=== PATIENT | female | born 1995 | race Hispanic/Latino ===

== ENCOUNTER 2019-02-24 17:01 | Emergency (ER) | payer BC ==
[2019-02-24 17:50] VITALS: O2SAT 100
--- NOTE | 2019-02-24 18:21 | ED PDOC ---
HPI: Abdomen Additional History Per: Patient Additional Complaint(s): 23 y/o sexually active female with PMH of anxiety comes to the ER c/o 3 days hx of abdominal pain. Abdominal pain started at epigastric area radiating slowly to umbilicus and LLQ. Pain is dull, comes and goes, 6/10, movements make it worse. Patient denies any dysuria, fever, chills, vaginal discharge, vomiting, diarrhea or constipation. Patient doesnt remember her LMP, + protected sex as per patient. PMH: Anxiety PSH: tonsillectomy Allg: NKDA SH: Social alcohol use FH: + ovarian and breast cancers <Sumit Ballard - Last Filed: 02/24/19 18:49> <Marga Nunez - Last Filed: 02/25/19 10:03> Time Seen by Provider: 02/24/19 17:38 Chief Complaint (Nursing): Abdominal Pain Past Medical History Vital Signs: Last Vital Signs Temp 98.7 F 02/24/19 17:41 Pulse 76 02/24/19 17:41 Resp 18 02/24/19 17:41 BP 132/84 02/24/19 17:41 Pulse Ox 100 02/24/19 17:41 - Family History Family History: States: Other Other Family History: Ovarian and breast cancers <Sumit Ballard - Last Filed: 02/24/19 18:49> Vital Signs: Last Vital Signs Temp 98.7 F 02/24/19 17:41 Pulse 76 02/24/19 17:41 Resp 18 02/24/19 17:41 BP 132/84 02/24/19 17:41 Pulse Ox 100 02/24/19 18:50 <Marga Nunez - Last Filed: 02/25/19 10:03> - Home Medications Home Medications: Ambulatory Orders Medication Instructions Recorded Doxycycline Hyclate 100 mg PO BID 7 Days #14 capsule 02/25/19 - Allergies Allergies/Adverse Reactions: Allergies Allergy/AdvReac Type Severity Reaction Status Date / Time No Known Allergies Allergy Verified 02/24/19 17:44 Review of Systems Constitutional: Negative for: Fever, Chills, Sweats Eyes: Negative for: Pain, Vision Change, Conjunctivae Inflammation ENT: Negative for: Ear Pain, Ear Discharge, Nose Pain, Nose Discharge Cardiovascular: Negative for: Chest Pain, Palpitations, Orthopnea, Paroxysmal Noc. Dyspnea Respiratory: Negative for: Cough, Shortness of Breath, Hemoptysis Gastrointestinal: Positive for: Nausea, Abdominal Pain. Negative for: Vomiting, Diarrhea Genitourinary Female: Negative for: Dysuria, Frequency Musculoskeletal: Negative for: Neck Pain Skin: Negative for: Rash Neurological: Negative for: Weakness, Numbness Psych: Positive for: Anxiety <Ballard,Sumit - Last Filed: 02/24/19 18:49> Physical Exam - Physical Exam Appears: Positive for: No Acute Distress Head Exam: Positive for: ATRAUMATIC, NORMAL INSPECTION, NORMOCEPHALIC Skin: Positive for: Normal Color Eye Exam: Positive for: Normal appearance, EOMI, PERRL ENT: Positive for: Normal ENT Inspection Neck: Positive for: Normal Cardiovascular/Chest: Positive for: Regular Rate, Rhythm. Negative for: Murmur, Bradycardia, Tachycardia Respiratory: Positive for: Normal Breath Sounds. Negative for: Decreased Breath Sounds, Accessory Muscle Use, Wheezing Gastrointestinal/Abdominal: Positive for: Bowel Sounds (present ), Soft, Tenderness (+ suprapubic and LLQ). Negative for: Distended, Guarding, Rebound Back: Positive for: Normal Inspection. Negative for: L CVA Tenderness, R CVA Tenderness Extremity: Positive for: Normal ROM. Negative for: Tenderness, Pedal Edema Neurological/Psych: Positive for: Awake, Alert, Normal Tone, Oriented, apartment rental clerk II- XII. Negative for: Lethargic, Listless <ElioSumit - Last Filed: 02/24/19 18:49> - ECG O2 Sat by Pulse Oximetry: 100 - Progress ED Course And Treament: A/P: 23 y/o F presented to ED c/o abdominal pain. - CBC - CMP - UA - U - TV U/S - Zofran - IVF - Reevaluation Case discussed with Dr. Nunez Transfer of care to Dr. Nunez, labs to follow <Sumit Ballard - Last Filed: 02/24/19 18:49> - Laboratory Results Result Diagrams: 02/24/19 18:45 02/24/19 18:45 Lab Results: Total Bilirubin 0.6 mg/dl (0.2-1.3) 02/24/19 18:45 AST 22 U/L (14-36) 02/24/19 18:45 ALT 31 U/L (9-52) 02/24/19 18:45 Alkaline Phosphatase 60 U/L (38-126) 02/24/19 18:45 Total Protein 8.4 G/DL (6.3-8.2) H 02/24/19 18:45 Albumin 4.9 g/dL (3.5-5.0) 02/24/19 18:45 Globulin 3.6 gm/dL (2.2-3.9) 02/24/19 18:45 Albumin/Globulin Ratio 1.4 (1.0-2.1) 02/24/19 18:45 <Marga Nunez - Last Filed: 02/25/19 10:03> Medical Decision Making Medical Decision Making: Abdominal pain/Superapubic <Sumit Ballard - Last Filed: 02/24/19 18:49> Medical Decision Makin:59 Transvaginal US Findings Uterus Measures 6.7 x 3.4 x 4 cm. Normal in size and appearance. No fibroid or other mass lesion seen. Endometrium Measures 4 mm in diameter. Unremarkable. Cervix No cervical abnormality identified. Nabothian cyst. Right ovary Measures 2.2 x 2.2 x 1.6 cm. No solid mass. Normal flow. Follicles are seen. Left ovary Measures 2.8 x 1.8 x 1.7 cm. No solid mass. Normal flow. Cyst measures 0.9 x 0.8 x 1.1 cm. Free fluid Free fluid noted. Other Findings None. Impression 1. Nabothian cyst. 2. Free fluid in the cul-de-sac. 3. Right ovarian follicles. 4. Left ovarian cyst. 21:09 CT ordered for further evaluation of abdominal pain. DW pt findings and plan. Pt appears comfortable. Declines pain medication at this time [address] Bae pending CT result <Marga Nunez - Last Filed: 02/25/19 10:03> Disposition - Patient ED Disposition Is Patient to be Admitted: No - Disposition Disposition Time: 18:48 <Sumit Blalard - Last Filed: 02/24/19 18:49> Counseled Patient/Family Regarding: Studies Performed - Disposition Disposition: Transfer of Care Disposition Time: 00:00 <Marga Nunez - Last Filed: 02/25/19 10:03> - Clinical Impression Clinical Impression: Abdominal pain in female, PID (acute pelvic inflammatory disease) - Disposition Condition: STABLE Prescriptions: Doxycycline Hyclate 100 mg PO BID 7 Days #14 capsule
[2019-02-24 18:59] LABS: BASO % 0.5 % (0.0-2.0); EOS # 0.1 K/uL (0.0-0.7); EOS % 1.1 % (0.0-4.0); HEMOGLOBIN 14.4 g/dL (12.0-16.0); LYMPH # 1.6 K/uL (1.0-4.3); LYMPH % 15.9 % (20.0-40.0); MEAN CELL VOLUME 89.1 fl (81.0-99.0); MEAN CORPUSCULAR HGB CONC 33.7 g/dL (33.0-37.0); MEAN PLATELET VOLUME 8.2 fl (7.2-11.7); MONO # 0.5 K/uL (0.0-0.8); MONO % 4.6 % (0.0-10.0); NEUT # 7.8 K/uL (1.8-7.0); NEUT % 77.9 % (50.0-75.0); NRBC % 0.1 % (0.0-0.0); RBC 4.8 Mil/uL (3.80-5.20)
[2019-02-24 19:09] LABS: ALB/GLOB RATIO 1.4 (1.0-2.1); ALBUMIN 4.9 g/dL (3.5-5.0); ALT/SGPT 31 U/L (9-52); AST/SGOT 22 U/L (14-36); BLOOD UREA NITROGEN 9 mg/dl (7-17); CALCIUM 9.3 mg/dL (8.4-10.2); GFR NON-AFRICAN AMERICAN > 60
[2019-02-24] MEDS ORDERED: Sodium Chloride 0.9% 50 ML IV ONE (22:03)
[2019-02-24] MEDS ORDERED: Iohexol 300 100 ML IJ ONE (22:03)
--- NOTE | 2019-02-25 00:14 | ED PDOC ---
- Laboratory Results Result Diagrams: 02/24/19 18:45 02/24/19 18:45 Lab Results: Total Bilirubin 0.6 mg/dl (0.2-1.3) 02/24/19 18:45 AST 22 U/L (14-36) 02/24/19 18:45 ALT 31 U/L (9-52) 02/24/19 18:45 Alkaline Phosphatase 60 U/L (38-126) 02/24/19 18:45 Total Protein 8.4 G/DL (6.3-8.2) H 02/24/19 18:45 Albumin 4.9 g/dL (3.5-5.0) 02/24/19 18:45 Globulin 3.6 gm/dL (2.2-3.9) 02/24/19 18:45 Albumin/Globulin Ratio 1.4 (1.0-2.1) 02/24/19 18:45 - ECG O2 Sat by Pulse Oximetry: 100 (RA) Pulse Ox Interpretation: Normal Medical Decision Making Medical Decision Making: Time: 0000 Patient transferred to nm by Dr. Nunez, pending abdomen/pelvis CT. 0018 Abdomen/pelvis CT FINDINGS: LUNG BASES: Minimal linear atelectasis near the lung bases. LIVER: Mild diffuse fatty infiltration of liver. GALLBLADDER AND BILE DUCTS: The gallbladder appears within normal limits. No radioopaque gallstones are seen. No biliary ductal dilatation is evident. PANCREAS: Unremarkable. SPLEEN: Unremarkable. ADRENAL GLANDS: Unremarkable. KIDNEYS, URETERS, AND BLADDER: The kidneys appear within normal limits. There is no hydronephrosis or hydroureter. No urinary calculi are seen. STOMACH AND BOWEL: Mild constipation in the colon. APPENDIX: No evidence of acute appendicitis on CT examination. PERITONEUM: There is a small to moderate pelvic fluid collection in the cul de sac which has a suggestion of slight rim enhancement. This raises the possibility of pelvic abscess or PID or similar. Please correlate clinically. This would possibly be amenable to percutaneous drainage via right posterior approach if clinically indicated. LYMPH NODES: No lymphadenopathy is evident. REPRODUCTIVE: Unremarkable as visualized. VASCULATURE: No evidence of abdominal aortic aneurysm. BONES: No aggressive appearing osseous lesion. No acute osseous pathology evident. IMPRESSION: 1. There is a small to moderate pelvic fluid collection in the cul de sac which has a suggestion of slight rim enhancement. This raises the possibility of pelvic abscess or PID or similar. Please correlate clinically. This would possi davian be amenable to percutaneous drainage via right posterior approach if clinically indicated. 2. Mild constipation in the colon. 3. Mild diffuse fatty infiltration of liver. 4. Additional findings as described above. 5. These findings are being telephoned to the referring clinician's at the time of interpretation. --Patient states she's feeling much better --Spoke with Dr. Dlaey who states that pelvic abscess is unlikely with negative U/S, recommends treatment for PID --Advised patient of results, encouraged safe sex habits, advised patient to followup with her PMD, Dr. Padron on Thursday for a checkup --Very well appearing upon discharge, afebrile Scribe Attestation: Documented by Marily Fatima, acting as a scribe for Shawn Bae MD. Provider Scribe Attestation: All medical record entries made by the Scribe were at my direction and personally dictated by me. I have reviewed the chart and agree that the record accurately reflects my personal performance of the history, physical exam, medical decision making, and the department course for this patient. I have also personally directed, reviewed, and agree with the discharge instructions and disposition. Disposition - Clinical Impression Clinical Impression: Abdominal pain in female, PID (acute pelvic inflammatory disease) - POA Present On Arrival: None - Disposition Referrals: Agnes Padron MD [Staff Provider] - Disposition: Routine/Home Disposition Time: 01:35 Condition: STABLE Prescriptions: Doxycycline Hyclate 100 mg PO BID 7 Days #14 capsule Instructions: Pelvic Inflammatory Disease Forms: [employer] (Indonesian)
[2019-02-25] MEDS ORDERED: cefTRIAXone (Rocephin) 250 mg Inj IM ONE (00:51)
[2019-02-25] MEDS ORDERED: Lidocaine Hydrochloride 1% 10 ML ONE (01:13)
[2019-02-25] MEDS ORDERED: cefTRIAXone (Rocephin) 250 mg Inj ONE (01:13)
[2019-02-25 01:52] LABS: SQUAMOUS EPITHIAL 3 /hpf (0-5); URINE BACTERIA OCC (<OCC); URINE BILIRUBIN NEGATIVE (NEGATIVE); URINE BLOOD SMALL (NEGATIVE); URINE CLARITY SLIGHTY-CLOUDY (Clear); URINE COLOR YELLOW (YELLOW); URINE GLUCOSE (UA) NEG (NEGATIVE); URINE HYALINE CAST 0-2 /hpf (0-2); URINE LEUKOCYTE ESTERASE NEG Leu/uL (Negative); URINE PROTEIN NEGATIVE (NEGATIVE); URINE UROBILINOGEN 0.2-1.0 mg/dL (0.2-1.0)
[2019-02-25 02:45] VITALS: BP 120/64; PULSE 68; RESP 16; TEMP 98.1
--- NOTE | 2019-02-25 11:19 | CT ---
Date of service: 02/24/2019 PROCEDURE: CT Abdomen and Pelvis with contrast HISTORY: LLQ pain COMPARISON: Transvaginal pelvic ultrasound 02/24/2019. TECHNIQUE: Following the intravenous administration of iodinated contrast material, a CT examination of the abdomen and pelvis was performed from the domes of the diaphragms to the symphysis pubis with reformatted datasets provided in axial, sagittal and coronal planes. Oral contrast was not administered as per referring physician request. Contrast dose: Omnipaque 300, 95 cc Radiation dose: Total exam DLP = 683.59 mGy-cm. This CT exam was performed using one or more of the following dose reduction techniques: Automated exposure control, adjustment of the mA and/or kV according to patient size, and/or use of iterative reconstruction technique. FINDINGS: LOWER THORAX: Unremarkable. LIVER: Borderline hepatic steatosis. No gross lesion or ductal dilatation. GALLBLADDER AND BILE DUCTS: Unremarkable. PANCREAS: Unremarkable. No gross lesion or ductal dilatation. SPLEEN: Unremarkable. ADRENALS: Unremarkable. No mass. KIDNEYS AND URETERS: Unremarkable. No hydronephrosis. No solid mass. VASCULATURE: Unremarkable. No aortic aneurysm. No aortic atherosclerotic calcification or mural plaque present. BOWEL: Stomach collapse not well evaluated. Much of the bowel is collapsed although moderate amount retained fecal material seen at the right hemicolon and proximal to mid transverse segment. No colonic diverticular changes or definitive pericolic reactive change or mural thickening grossly. APPENDIX: Normal appendix. PERITONEUM: Unremarkable. No free fluid. No free air. LYMPH NODES: Unremarkable. No enlarged lymph nodes. BLADDER: The bladder is distended but otherwise unremarkable appearing. REPRODUCTIVE: Limited cul-de-sac fluid is appreciated reiterated compared to the prior transvaginal pelvic ultrasound. Etiology is unclear as no suspicious adnexal findings are appreciable consider possible adnexal cyst rupture though this is not definitive. BONES: No acute fracture. OTHER FINDINGS: None. IMPRESSION: 1. Limited pelvic fluid of uncertain origin. Consider possible adnexal cyst rupture though this is not definite. This fluid does not appear to be an abscess which makes this a discordant finding as per preliminary report by [facility] documented below. 2. Borderline hepatic steatosis. Discordant preliminary report from [facility] (Impression No. 1), 02/16/2019, 12:18 a.m..
--- NOTE | 2019-02-25 13:00 | US ---
Date of service: 02/24/2019 HISTORY: LEFT pelvic pain COMPARISON: None available. TECHNIQUE: Transvaginal pelvic ultrasound was performed. FINDINGS: UTERUS: Measures 6.7 x 3.4 x 4.0 cm. Anteverted, normal in size and appearance. No fibroid or other mass lesion seen. ENDOMETRIUM: Measures 9.0 mm in diameter. Normal in appearance. CERVIX: There is a subcentimeter nabothian cyst in the anterior cervical wall, otherwise no significant cervical abnormality identified. RIGHT OVARY: Measures 2.2 x 2.2 x 1.6 cm. No solid mass. Normal flow. LEFT OVARY: Measures 2.8 x 1.8 x 1.7 cm. No solid mass. Normal flow. There is a 0.9 x 0.8 x 1.1 cm simple cyst. FREE FLUID: There is small amount of free fluid in the cul de sac, likely physiologic. OTHER FINDINGS: None. IMPRESSION: Small amount of free fluid in the cul de sac is likely physiologic. Subcentimeter nabothian cyst in the anterior cervical wall and 1.1 cm simple cyst in the left ovary. A preliminary report was provided by [facility].
== END 2019-02-25 01:35 | disposition home or self-care (01) ==
LOC: H.ER 17:01
DX: R10.32 Left lower quadrant pain (principal); N73.9 Female pelvic inflammatory disease, unspecified; F41.9 Anxiety disorder, unspecified; K59.00 Constipation, unspecified; K76.0 Fatty (change of) liver, not elsewhere classified; N83.202 Unspecified ovarian cyst, left side
CPT/HCPCS: 74177; 76830; 80053; 81003; 81025; 85025; 87491; 87591; 96372; 99284; J0696; Q9967